=== PATIENT | male | born 1930 | race Caucasian/White ===

== ENCOUNTER 2017-09-16 08:47 | Day surgery (SDC) | payer MEDICARE, BC ==
[~2017-09-16 08:47] MED LIST: Cataract Ophth Solution EYERT ONE; Lidocaine 4% 5 ML Amp EYERT ONE; Moxifloxacin 0.5% Ophth Soln 3 ML Bottle EYERT ONE; Sodium Chloride 0.9% 10 ML Syringe FLUSH PRN
[2017-09-16] MEDS ORDERED: Sodium Chloride 0.9% 10 ML Syringe IV ONE (08:48)
[2017-09-16] MEDS ORDERED: Midazolam 1 MG/ML 2 ML SDV IV ONE (08:48)
[2017-09-16] MEDS ORDERED: EPINEPHrine 1 MG/ML SDV ONE (12:06)
[2017-09-16] MEDS ORDERED: Balanced Salt Solution Ophth Irrig 500 ML Bottle IOCULAR ONE (12:07)
[2017-09-16] MEDS ORDERED: Lidocaine 1% 10 ML MDV ONE (12:08)
[2017-09-16] MEDS ORDERED: Lidocaine 4% 5 ML Amp ONE (12:09)
[2017-09-16] MEDS ORDERED: prednisoLONE Acetate 1% Ophth Susp 5 ML Bottle ONE (12:10)
[2017-09-16] MEDS ORDERED: Moxifloxacin 0.5% Ophth Soln 3 ML Bottle ONE (12:10)
[2017-09-16] MEDS ORDERED: Povidone-Iodine 5% Sterile Ophth Soln 30 ML Bottle ONE (12:11)
--- NOTE | 2017-09-16 12:16 | PCM.OPNOTE ---
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 The patient was given topical Lidocaine 4% drops in the right eye. The patient was then prepped and draped in the sterile [facility] fashion. A wire lid speculum was placed in the right eye. A clear cornea temporal approach was used. A [address] blade was used to make a paracentesis site around 11:00. Preservative-free Lidocaine 1% was injected intracamerally. Viscoelastic was placed in the anterior chamber. A 2.5 mm keratome blade was used to make a clear corneal incision around 9:00. A cystotome needle and Utrata forceps were used to perform continuous curvilinear capsulorhexis. Balanced Salt Solution was used to perform hydrodissection and hydrodelineation. The lens nucleus was removed using the divide and conquer phacoemulsification technique. Cumulative dissipated energy was 11.69. Remaining cortex was removed using irrigation- aspiration. Viscoelastic was placed in the capsular bag. PCBOO 24.0 diopter lens was then placed in the capsular bag. Remaining viscoelastic was removed using irrigation-aspiration. The lens was well centered in the capsular bag. The paracentesis and corneal incision were found to be water-tight. The patient was given topical Prednisolone and Vigamox drops. The speculum was removed and a shield was placed over the right eye. The patient was taken to recovery in stable condition. I certify that I was present for and performed the entire operative procedure. Manuel Gauthier M.D.
[2017-09-16 13:46] VITALS: BP 123/48
== END 2017-09-16 13:32 | disposition home or self-care (01) ==
LOC: DL.SDS 08:47
PROVIDERS: ATTEND Ophthalmology
DX: H25.811 Combined forms of age-related cataract, right eye (principal); I25.10 Atherosclerotic heart disease of native coronary artery without angina pectoris; G89.29 Other chronic pain; M54.9 Dorsalgia, unspecified; I50.9 Heart failure, unspecified; K21.9 Gastro-esophageal reflux disease without esophagitis; E78.5 Hyperlipidemia, unspecified; I10 Essential (primary) hypertension; E03.9 Hypothyroidism, unspecified; Z88.1 Allergy status to other antibiotic agents; Z88.8 Allergy status to other drugs, medicaments and biological substances; Z87.891 Personal history of nicotine dependence
CPT/HCPCS: 66984; A9270; J0171; J2250; J7050; V2632; 00142

== ENCOUNTER 2017-10-21 07:49 | Day surgery (SDC) | payer MEDICARE, BC ==
[2017-10-21] MEDS ORDERED: Midazolam 1 MG/ML 2 ML SDV IV ONE (07:50)
[2017-10-21] MEDS ORDERED: Sodium Chloride 0.9% 10 ML Syringe IV ONE (07:50)
[2017-10-21] MEDS ORDERED: Moxifloxacin 0.5% Ophth Soln 3 ML Bottle EYELF ONE ×2 (09:00→09:40)
[2017-10-21] MEDS ORDERED: Sodium Chloride 0.9% 10 ML Syringe FLUSH PRN (09:00)
[2017-10-21] MEDS ORDERED: Lidocaine 4% 5 ML Amp EYELF ONE ×2 (09:00→09:40)
[2017-10-21] MEDS ORDERED: Cataract Ophth Solution EYELF ONE (09:00)
[2017-10-21] MEDS ORDERED: Povidone-Iodine 5% Sterile Ophth Soln 30 ML Bottle EYELF ONE (09:32)
[2017-10-21] MEDS ORDERED: Lidocaine 1% 30 ML SDV ONE (09:32)
[2017-10-21] MEDS ORDERED: EPINEPHrine 1 MG/ML SDV ONE (09:32)
[2017-10-21] MEDS ORDERED: prednisoLONE Acetate 1% Ophth Susp 5 ML Bottle EYELF ONE (09:40)
[2017-10-21] MEDS ORDERED: Balanced Salt Solution Ophth Irrig 500 ML Bottle IOCULAR ONE (09:40)
--- NOTE | 2017-10-21 10:12 | PCM.OPNOTE ---
- General Post-Op/Procedure Note Date of Surgery/Procedure: 10/21/17 Operative Procedure(s): Cataract extraction with intraocular lens implant left eye Findings: As above Post-Op Diagnosis: Same Anesthesia Technique: MAC Primary Surgeon: Manuel Gauthier Pathology: None EBL in mLs: 0 Complications: None Condition: Good Free Text/Narrative:: PROCEDURE: After the risks and benefits of the procedure were explained informed consent was obtained from the patient and the patient was taken to the operating room. The patient was given topical Lidocaine 4% drops in the left eye. The patient was then prepped and draped in the sterile [facility] fashion. A wire lid speculum was placed in the left eye. A clear cornea temporal approach was used. A [address] blade was used to make a paracentesis site around 5:00. Preservative-free Lidocaine 1% was injected intracamerally. Viscoelastic was placed in the anterior chamber. A 2.5 mm keratome blade was used to make a clear corneal incision around 3:00. A cystotome needle and Utrata forceps were used to perform continuous curvilinear capsulorhexis. Balanced Salt Solution was used to perform hydrodissection and hydrodelineation. The lens nucleus was removed using the divide and conquer phacoemulsification technique. Cumulative dissipated energy was 9.25. Remaining cortex was removed using irrigation- aspiration. Viscoelastic was placed in the capsular bag. PCBOO 24.0 diopter lens was then placed in the capsular bag. Remaining viscoelastic was removed using irrigation-aspiration. The lens was well centered in the capsular bag. The paracentesis and corneal incision were found to be water-tight. The patient was given topical Prednisolone and Vigamox drops. The speculum was removed and a shield was placed over the left eye. The patient was taken to recovery in stable condition. I certify that I was present for and performed the entire operative procedure. Manuel Gauthier M.D.
[2017-10-21] MEDS ORDERED: Acetaminophen 325 MG Tab PO ONE (10:52)
[2017-10-21 13:07] VITALS: BP 122/41
== END 2017-10-21 11:20 | disposition home or self-care (01) ==
LOC: DL.SDS 07:49
PROVIDERS: ATTEND Ophthalmology
DX: H25.12 Age-related nuclear cataract, left eye (principal); I11.0 Hypertensive heart disease with heart failure; I50.9 Heart failure, unspecified; I25.10 Atherosclerotic heart disease of native coronary artery without angina pectoris; K21.9 Gastro-esophageal reflux disease without esophagitis; E03.9 Hypothyroidism, unspecified; Z87.891 Personal history of nicotine dependence; Z79.82 Long term (current) use of aspirin; Z79.899 Other long term (current) drug therapy; Z88.1 Allergy status to other antibiotic agents; Z88.0 Allergy status to penicillin; Z88.8 Allergy status to other drugs, medicaments and biological substances
CPT/HCPCS: 00142; 66984; A9270; J0171; J2250; J7050; V2632

== ENCOUNTER 2018-10-28 19:03 | Emergency (ER) | payer MEDICARE, BC ==
--- NOTE | 2018-10-28 19:38 | EDM.PDOC ---
ED HPI GENERAL MEDICAL PROBLEM - General Chief Complaint: Syncope Stated Complaint: AMBULANCE Time Seen by Provider: 10/28/18 19:15 Source of Information: Reports: Patient, Family, RN History Limitations: Reports: No Limitations - History of Present Illness INITIAL COMMENTS - FREE TEXT/NARRATIVE: ED via [facility], called by family. Patient reported to be sitting in lawn with family. appeared to be sleeping but when woke by daughter responses seemed slow and was unable to walk. Seems improved now. patient states he woke this am not feeling well unable to describe specific symptoms. Poor appetite at lunch, has not eaten supper. No chest pain, may lightheaded during day. No fever, no abdominal pain, no vomiting. No cough. 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 none since. Is not on aspirin, was taken off " due to risk of seizures". - Related Data Allergies Allergy/AdvReac Type Severity Reaction Status Date / Time amoxicillin [Amoxicillin] Allergy Cannot Verified 10/21/17 08:37 Remember amoxicillin trihydrate Allergy Cannot Verified 10/21/17 08:37 [From Augmentin] Remember diltiazem HCl [From Cardizem] Allergy Cannot Verified 10/21/17 08:37 Remember potassium clavulanate Allergy Cannot Verified 10/21/17 08:37 [From Augmentin] Remember risedronate sodium Allergy Cannot Verified 10/21/17 08:37 [From Actonel] Remember Home Meds: Home Meds Aspirin [Low Dose Aspirin EC] 81 mg PO DAILY 03/29/14 [History] Isosorbide Mononitrate [Isosorbide Mononitrate ER] 60 mg PO DAILY 03/29/14 [ History] Levothyroxine [Synthroid] 88 mcg PO DAILY 03/29/14 [History] Metoprolol Tartrate 25 mg PO BID 03/29/14 [History] Ranitidine [Zantac] 150 mg PO BID 03/29/14 [History] Sennosides/Docusate Sodium [Senna-Docusate Sodium] 1 tab PO QID 03/29/14 [ History] Simvastatin [Zocor] 40 mg PO BEDTIME 03/29/14 [History] risperiDONE [Risperdal] 0.5 mg PO BEDTIME 03/29/14 [History] Acetaminophen [Acetaminophen Extra Strength] 1,000 mg PO BID PRN 07/01/14 [ History] Nitroglycerin 0.4 mg SL .Q5MIN PRN 07/01/14 [History] Morphine [Morphine 20 MG/5 ML] 2 mg IV .INTRATHECAL 09/15/17 [History] Tolterodine Tartrate 2 mg PO BID 09/15/17 [History] cloNIDine [Catapres] 0.2 mg PO BID 09/15/17 [History] Lisinopril [Prinivil] 20 mg PO BID 09/16/17 [History] Albuterol Sulfate [Proair Hfa] 1 - 2 puff INH ASDIRECTED PRN 10/20/17 [History] Ketorolac [Acular 0.5% Ophth Soln] 1 drop EYELF ASDIRECTED 10/20/17 [History] Ofloxacin 1 drop EYELF ASDIRECTED 10/20/17 [History] prednisoLONE Acetate [Prednisolone Acetate] 1 drop EYELF ASDIRECTED 10/20/17 [ History] Past Medical History HEENT History: Reports: Cataract, Hard of Hearing Cardiovascular History: Reports: CAD, Heart Failure, High Cholesterol, Hypertension Respiratory History: Reports: SOB Gastrointestinal History: Reports: GERD, Other (See Below) Other Gastrointestinal History: ESOPHAGEAL REFLUX Genitourinary History: Reports: None Musculoskeletal History: Reports: Arthritis, Back Pain, Chronic, Osteoarthritis Neurological History: Reports: None Psychiatric History: Reports: None Endocrine/Metabolic History: Reports: Hypothyroidism Hematologic History: Reports: Other (See Below) Other Hematologic History: THROMBOCYTOPENIA Immunologic History: Reports: None Oncologic (Cancer) History: Reports: None Dermatologic History: Reports: Other (See Below) Other Dermatologic History: 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 - Infectious Disease History Infectious Disease History: Reports: Chicken Pox, Measles, Mumps, Pertussis ( Whooping Cough) - Past Surgical History Head Surgeries/Procedures: Reports: None HEENT Surgical History: Reports: Cataract Surgery Cardiovascular Surgical History: Reports: Coronary Artery Stent Respiratory Surgical History: Reports: None GI Surgical History: Reports: Appendectomy Neurological Surgical History: Reports: None Musculoskeletal Surgical History: Reports: None Dermatological Surgical History: Reports: None Social & Family History - Family History Family Medical History: Noncontributory - Caffeine Use Caffeine Use: Reports: None ED ROS GENERAL - Review of Systems Review Of Systems: ROS reveals no pertinent complaints other than HPI. Constitutional: Reports: Weakness, Decreased Appetite HEENT: Reports: Hearing Loss Respiratory: Reports: No Symptoms Cardiovascular: Reports: No Symptoms GI/Abdominal: Reports: No Symptoms : Reports: No Symptoms Musculoskeletal: Reports: Back Pain (chronic no change) Skin: Reports: Other (red warm) Neurological: Reports: No Symptoms Psychiatric: Reports: No Symptoms ED EXAM, NEURO - Physical Exam Exam: See Below Exam Limited By: No Limitations General Appearance: Alert, No Apparent Distress Eye Exam: Bilateral Eye: EOMI, PERRL Ears: Normal External Exam, Hearing Loss Nose: Normal Inspection Throat/Mouth: Normal Inspection, Normal Oropharynx, Normal Voice Head Exam: Atraumatic, Normocephalic Neck: Normal Inspection Respiratory/Chest: No Respiratory Distress, Lungs Clear, Normal Breath Sounds. No: Crackles, Rales, Rhonchi, Wheezing, Stridor Cardiovascular: Normal Peripheral Pulses, Regular Rate, Rhythm. No: No Edema (1 +) GI/Abdominal: Normal Bowel Sounds, Soft. No: Distended, Guarding Neurological: Alert, CN II-XII Intact, No Motor/Sensory Deficits, Other ( Oriented person place, unsure time but able to identify as late afternoon, since not eaten supper. equal strength ilateral upper and lower no weakness noted . Speech clear. ). No: Abnormal Sensation, Tremor Back Exam: Normal Inspection, Full Range of Motion Extremities: Normal Inspection, Normal Range of Motion Psychiatric: Flat Affect Skin Exam: Warm, Dry, Intact, Normal Color, Other (skin warm and face flushed on arrival) Course - Vital Signs Last Recorded V/S: Last Vital Signs Temp 100.1 F 10/28/18 19:47 Pulse 91 10/28/18 19:47 Resp 14 10/28/18 19:47 BP 161/84 H 10/28/18 19:47 Pulse Ox 95 10/28/18 19:47 - Orders/Labs/Meds Orders: Active Orders 24 hr Category Date Time Status EKG Documentation Completion [RC] URGENT Care 10/28/18 19:14 Active Glucose [Blood Glucose Check, Bedside] [RC] ONETIME Care 10/28/18 19:21 Active Labs: Laboratory Tests 10/28/18 10/28/18 10/28/18 Range/Units 19:54 19:54 19:54 WBC 8.3 (5.0-10.0) 10^3/uL RBC 3.79 L (4.6-6.2) 10^6/uL Hgb 12.3 L (14.0-18.0) g/dL Hct 36.1 L (40.0-54.0) % MCV 95.3 D (80-100) fL MCH 32.5 (27.0-34.0) pg MCHC 34.1 (33.0-35.0) g/dL Plt Count 70 L D (150-450) 10^3/uL Neut % (Auto) 87.1 H (42.2-75.2) % Lymph % (Auto) 5.3 L (20.5-50.1) % Colbert % (Auto) 6.8 (2-8) % Eos % (Auto) 0.7 L (1.0-3.0) % Baso % (Auto) 0.1 (0.0-1.0) % PT (9.0-12.0) SEC INR (0.9-1.2) Sodium 137 (135-145) mmol/L Potassium 4.2 (3.6-5.0) mmol/L Chloride 103 (101-111) mmol/L Carbon Dioxide 26.0 (21.0-31.0) mmol/L Anion Gap 12.2 BUN 17 (7-18) mg/dL Creatinine 1.4 H (0.6-1.3) mg/dL Est Cr Clr Drug Dosing 38.10 mL/min Estimated GFR (MDRD) 48 BUN/Creatinine Ratio 12.14 Glucose 195 H (74-105) mg/dL POC Glucose (83-110) mg/dl Lactic Acid (0.5-2.2) mmol/L Calcium 8.4 (8.4-10.2) mg/dl Magnesium 1.5 L (1.8-2.5) mg/dL Total Bilirubin 0.9 (0.2-1.0) mg/dL AST 43 H (10-42) IU/L ALT 22 (10-60) IU/L Alkaline Phosphatase 83 (42-121) IU/L CK-MB (CK-2) 2.30 (0.4-4.7) ng/mL Troponin I 0.03 H* (0.00-0.02) ng/ml Total Protein 7.0 (6.7-8.2) g/dl Albumin 3.4 (3.2-5.5) g/dl Globulin 3.6 Albumin/Globulin Ratio 0.94 TSH, Ultra Sensitive 1.31 (0.45-5.33) uIu/mL Urine Color (YELLOW) Urine Appearance (CLEAR) Urine pH (5.0-9.0) Ur Specific [place] (1.005-1.030) Urine Protein (NEGATIVE) Urine Glucose (UA) (NEGATIVE) Urine Ketones (NEGATIVE) Urine Occult Blood (NEGATIVE) Urine Nitrite (NEGATIVE) Urine Bilirubin (NEGATIVE) Urine Urobilinogen (0.2-1.0) mg/dL Ur Leukocyte Esterase (NEGATIVE) Urine RBC /HPF Urine WBC (0-5/HPF) /HPF Ur Epithelial Cells (NOT SEEN) /HPF Urine Bacteria (0-FEW/HPF) /HPF 10/28/18 10/28/18 10/28/18 Range/Units 19:54 19:54 19:59 WBC (5.0-10.0) 10^3/uL RBC (4.6-6.2) 10^6/uL Hgb (14.0-18.0) g/dL Hct (40.0-54.0) % MCV (80-100) fL MCH (27.0-34.0) pg MCHC (33.0-35.0) g/dL Plt Count (150-450) 10^3/uL Neut % (Auto) (42.2-75.2) % Lymph % (Auto) (20.5-50.1) % Colbert % (Auto) (2-8) % Eos % (Auto) (1.0-3.0) % Baso % (Auto) (0.0-1.0) % PT 10.8 (9.0-12.0) SEC INR 1.1 (0.9-1.2) Sodium (135-145) mmol/L Potassium (3.6-5.0) mmol/L Chloride (101-111) mmol/L Carbon Dioxide (21.0-31.0) mmol/L Anion Gap BUN (7-18) mg/dL Creatinine (0.6-1.3) mg/dL Est Cr Clr Drug Dosing mL/min Estimated GFR (MDRD) BUN/Creatinine Ratio Glucose (74-105) mg/dL POC Glucose 192 H (83-110) mg/dl Lactic Acid 1.9 (0.5-2.2) mmol/L Calcium (8.4-10.2) mg/dl Magnesium (1.8-2.5) mg/dL Total Bilirubin (0.2-1.0) mg/dL AST (10-42) IU/L ALT (10-60) IU/L Alkaline Phosphatase (42-121) IU/L CK-MB (CK-2) (0.4-4.7) ng/mL Troponin I (0.00-0.02) ng/ml Total Protein (6.7-8.2) g/dl Albumin (3.2-5.5) g/dl Globulin Albumin/Globulin Ratio TSH, Ultra Sensitive (0.45-5.33) uIu/mL Urine Color (YELLOW) Urine Appearance (CLEAR) Urine pH (5.0-9.0) Ur Specific [place] (1.005-1.030) Urine Protein (NEGATIVE) Urine Glucose (UA) (NEGATIVE) Urine Ketones (NEGATIVE) Urine Occult Blood (NEGATIVE) Urine Nitrite (NEGATIVE) Urine Bilirubin (NEGATIVE) Urine Urobilinogen (0.2-1.0) mg/dL Ur Leukocyte Esterase (NEGATIVE) Urine RBC /HPF Urine WBC (0-5/HPF) /HPF Ur Epithelial Cells (NOT SEEN) /HPF Urine Bacteria (0-FEW/HPF) /HPF 10/28/18 Range/Units 21:33 WBC (5.0-10.0) 10^3/uL RBC (4.6-6.2) 10^6/uL Hgb (14.0-18.0) g/dL Hct (40.0-54.0) % MCV (80-100) fL MCH (27.0-34.0) pg MCHC (33.0-35.0) g/dL Plt Count (150-450) 10^3/uL Neut % (Auto) (42.2-75.2) % Lymph % (Auto) (20.5-50.1) % Colbert % (Auto) (2-8) % Eos % (Auto) (1.0-3.0) % Baso % (Auto) (0.0-1.0) % PT (9.0-12.0) SEC INR (0.9-1.2) Sodium (135-145) mmol/L Potassium (3.6-5.0) mmol/L Chloride (101-111) mmol/L Carbon Dioxide (21.0-31.0) mmol/L Anion Gap BUN (7-18) mg/dL Creatinine (0.6-1.3) mg/dL Est Cr Clr Drug Dosing mL/min Estimated GFR (MDRD) BUN/Creatinine Ratio Glucose (74-105) mg/dL POC Glucose (83-110) mg/dl Lactic Acid (0.5-2.2) mmol/L Calcium (8.4-10.2) mg/dl Magnesium (1.8-2.5) mg/dL Total Bilirubin (0.2-1.0) mg/dL AST (10-42) IU/L ALT (10-60) IU/L Alkaline Phosphatase (42-121) IU/L CK-MB (CK-2) (0.4-4.7) ng/mL Troponin I (0.00-0.02) ng/ml Total Protein (6.7-8.2) g/dl Albumin (3.2-5.5) g/dl Globulin Albumin/Globulin Ratio TSH, Ultra Sensitive (0.45-5.33) uIu/mL Urine Color Yellow (YELLOW) Urine Appearance Slightly cloudy (CLEAR) Urine pH 7.0 (5.0-9.0) Ur Specific [place] 1.015 (1.005-1.030) Urine Protein 30 H (NEGATIVE) Urine Glucose (UA) Negative (NEGATIVE) Urine Ketones Negative (NEGATIVE) Urine Occult Blood Trace-intact H (NEGATIVE) Urine Nitrite Negative (NEGATIVE) Urine Bilirubin Negative (NEGATIVE) Urine Urobilinogen 0.2 (0.2-1.0) mg/dL Ur Leukocyte Esterase Negative (NEGATIVE) Urine RBC 0-5 /HPF Urine WBC 0-5 (0-5/HPF) /HPF Ur Epithelial Cells Rare (NOT SEEN) /HPF Urine Bacteria Not seen (0-FEW/HPF) /HPF Departure - Departure Time of Disposition: 22:17 Disposition: Home, Self-Care 01 Condition: Good Clinical Impression: Syncope, near, Heat exhaustion - Discharge Information *PRESCRIPTION DRUG MONITORING PROGRAM REVIEWED*: No *COPY OF PRESCRIPTION DRUG MONITORING REPORT IN PATIENT CONNOR: No Instructions: Near-Syncope, [id number], Dehydration, Adult, [id number] Referrals: PCP,None [Primary Care Provider] - Forms: ED Department Discharge Additional Instructions: light activity up with assist tonight fluids home medications clinic follow up with week - My Orders Last 24 Hours: My Active Orders 10/28/18 19:14 EKG Documentation Completion [RC] URGENT 10/28/18 19:21 Glucose [Blood Glucose Check, Bedside] [RC] ONETIME - Assessment/Plan Last 24 Hours: My Active Orders 10/28/18 19:14 EKG Documentation Completion [RC] URGENT 10/28/18 19:21 Glucose [Blood Glucose Check, Bedside] [RC] ONETIME
[2018-10-28 19:51] VITALS: BP 161/84
[2018-10-28 21:05] LABS: ANION GAP 12.2
== END 2018-10-28 22:28 | disposition home or self-care (01) ==
LOC: DL.ED 19:03
DX: T67.5XXA Heat exhaustion, unspecified, initial encounter (principal); R55 Syncope and collapse; I11.0 Hypertensive heart disease with heart failure; I50.9 Heart failure, unspecified; E78.00 Pure hypercholesterolemia, unspecified; K21.9 Gastro-esophageal reflux disease without esophagitis; Z79.899 Other long term (current) drug therapy; Z79.82 Long term (current) use of aspirin
CPT/HCPCS: 36415; 70450; 80053; 81001; 82553; 82962; 83605; 83735; 84443; 84484; 85025; 85610; 93005; 99285-25

== ENCOUNTER 2019-01-25 06:52 | Emergency (ER) | payer MEDICARE, BC ==
--- NOTE | 2019-01-25 07:10 | EDM.PDOC ---
"ED HPI GENERAL MEDICAL PROBLEM - General Chief Complaint: Trauma Stated Complaint: AMBULANCE Time Seen by Provider: 01/25/19 07:00 Source of Information: Reports: Patient, EMS, Family (daughter), Old Records, RN , RN Notes Reviewed History Limitations: Reports: No Limitations - History of Present Illness INITIAL COMMENTS - FREE TEXT/NARRATIVE: Pt arrives to ER from assisted living by ambulance with report that he fell at 0545HRS while using his walker to go to the bathroom. Pt reports he hit his forehead, but did not have a LOC. He is on ASA. Pt also has multiple skin tears on the left upper extremity, some due to the fall and some he thinks from struggling to get up. Denies neck pain, visual changes, or any symptoms preceding the fall such as chest pain, lightheadedness, dizziness, motor weakness, or syncope. Pt reports that he has been weak and fatigued for several weeks. TRAUMA NOTES: Pre-arrival trauma alert by EMS: 0648HRS, trauma activation 0653HRS. ARRIVAL TIME: 0652HRS C-COLLAR STATUS: No C-collar applied prior to arrival or in ER, no C-collar indicated. SPINAL BOARD/IMMOBILIZATION STATUS: no spinal immobilization GCS ON ARRIVAL: 15 Onset: Today Location: Reports: Head, Upper Extremity, Left Quality: Reports: Ache Severity: Mild Improves with: Reports: None Worsens with: Reports: None Associated Symptoms: Reports: No Other Symptoms - Related Data Allergies Allergy/AdvReac Type Severity Reaction Status Date / Time amoxicillin [Amoxicillin] Allergy Cannot Verified 10/21/17 08:37 Remember amoxicillin trihydrate Allergy Cannot Verified 10/21/17 08:37 [From Augmentin] Remember diltiazem HCl [From Cardizem] Allergy Cannot Verified 10/21/17 08:37 Remember potassium clavulanate Allergy Cannot Verified 10/21/17 08:37 [From Augmentin] Remember risedronate sodium Allergy Cannot Verified 10/21/17 08:37 [From Actonel] Remember Home Meds: Home Meds Aspirin [Low Dose Aspirin EC] 81 mg PO DAILY 03/29/14 [History] Isosorbide Mononitrate [Isosorbide Mononitrate ER] 60 mg PO DAILY 03/29/14 [ History] Levothyroxine [Synthroid] 88 mcg PO DAILY 03/29/14 [History] Metoprolol Tartrate 25 mg PO BID 03/29/14 [History] Ranitidine [Zantac] 150 mg PO BID 03/29/14 [History] Sennosides/Docusate Sodium [Senna-Docusate Sodium] 1 tab PO QID 03/29/14 [ History] Simvastatin [Zocor] 40 mg PO BEDTIME 03/29/14 [History] risperiDONE [Risperdal] 0.5 mg PO BEDTIME 03/29/14 [History] Acetaminophen [Acetaminophen Extra Strength] 1,000 mg PO BID PRN 07/01/14 [ History] Nitroglycerin 0.4 mg SL .Q5MIN PRN 07/01/14 [History] Lisinopril [Prinivil] 20 mg PO BID 09/16/17 [History] Albuterol Sulfate [Proair Hfa] 1 - 2 puff INH ASDIRECTED PRN 10/20/17 [History] Ketorolac [Acular 0.5% Ophth Soln] 1 drop EYELF ASDIRECTED 10/20/17 [History] Ofloxacin 1 drop EYELF ASDIRECTED 10/20/17 [History] prednisoLONE Acetate [Prednisolone Acetate] 1 drop EYELF ASDIRECTED 10/20/17 [ History] Sertraline [Zoloft] 50 mg PO BEDTIME 01/25/19 [History] Tolterodine Tartrate 2 mg PO BID 01/25/19 [History] cloNIDine [Clonidine] 0.1 mg PO BID 01/25/19 [History] Past Medical History HEENT History: Reports: Cataract, Hard of Hearing Cardiovascular History: Reports: CAD, Heart Failure, High Cholesterol, Hypertension Respiratory History: Reports: SOB Gastrointestinal History: Reports: GERD, Other (See Below) Other Gastrointestinal History: ESOPHAGEAL REFLUX Genitourinary History: Reports: None Musculoskeletal History: Reports: Arthritis, Back Pain, Chronic, Osteoarthritis Neurological History: Reports: None Psychiatric History: Reports: None Endocrine/Metabolic History: Reports: Hypothyroidism Hematologic History: Reports: Other (See Below) Other Hematologic History: THROMBOCYTOPENIA Immunologic History: Reports: None Oncologic (Cancer) History: Reports: None Dermatologic History: Reports: Other (See Below) Other Dermatologic History: 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 - Infectious Disease History Infectious Disease History: Reports: Chicken Pox, Measles, Mumps, Pertussis ( Whooping Cough) - Past Surgical History Head Surgeries/Procedures: Reports: None HEENT Surgical History: Reports: Cataract Surgery Cardiovascular Surgical History: Reports: Coronary Artery Stent Respiratory Surgical History: Reports: None GI Surgical History: Reports: Appendectomy Neurological Surgical History: Reports: None Musculoskeletal Surgical History: Reports: None Dermatological Surgical History: Reports: None Social & Family History - Family History Family Medical History: Noncontributory - Tobacco Use Smoking Status *Q: Former Smoker - Caffeine Use Caffeine Use: Reports: None - Living Situation & Occupation Living situation: Reports: Alone, Assisted Living Occupation: Retired Review of Systems - Review of Systems Review Of Systems: ROS reveals no pertinent complaints other than HPI. ED EXAM, GENERAL - Physical Exam Exam: See Below Free Text/Narrative:: PRIMARY TRAUMA SURVEY (0700hrs) AIRWAY: Patent nasal and oral airways. BREATHING: Spontaneous respirations with clear B/L breath sounds. CIRCULATION: Heart RRR, intact distal pulses at all four extremities, no cyanosis. DEFORMITY/DISABILITY: No long bone deformities. No active bleeding. No neuro. deficits. Abdomen benign to exam. EXPOSURE: Skin warm, and dry. 1cm irregular laceration to forehead. Multiple large superficial skin tears to the left upper extremity. SECONDARY TRAUMA SURVEY FOLLOWS (0805hrs) Exam Limited By: No Limitations General Appearance: Alert, No Apparent Distress, Other (Well appearing elderly male) Eye Exam: Bilateral Eye: EOMI, Normal Inspection, PERRL Ears: Normal External Exam (Left helix s/p basal CA removal, well healed), Hearing Grossly Normal Nose: Normal Inspection, Normal Mucosa, No Blood Throat/Mouth: Normal Inspection, Normal Lips, Normal Teeth, Normal Gums, Normal Oropharynx, Normal Voice, No Airway Compromise Head: Normocephalic, Other (1cm lac. to forehead to depth of subcut. tissue, no active bleeding, no FB.) Neck: Normal Inspection, Supple, Non-Tender, Full Range of Motion, Other (No c- collar. C-spine cleared by Hx and exam.) Respiratory/Chest: No Respiratory Distress, Lungs Clear, No Accessory Muscle Use , Chest Non-Tender, Decreased Breath Sounds Cardiovascular: Normal Peripheral Pulses, Regular Rate, Rhythm, No Edema GI/Abdominal: Normal Bowel Sounds, Soft, Non-Tender, No Distention (Male) Exam: Deferred Rectal (Males) Exam: Deferred Back Exam: Normal Inspection Extremities: Normal Range of Motion, Non-Tender, Normal Capillary Refill Neurological: Alert, Oriented (to person and place), CN II-XII Intact, No Motor/ Sensory Deficits, Other (GCS 15 at 1hr. GCS 15 at time of discharge.) Psychiatric: Normal Mood Skin Exam: Warm, Dry, Wound/Incision (Large superficial skin tears to left upper arm, left forearm, and left dorsal hand) ED TRAUMA PROCEDURES - Laceration/Wound Repair Medial Forehead Lac/Wound Length In cm: 1 Appearance: Subcutaneous, Irregular Distal NVT: Neuro & Vascular Intact Anesthetic Type: Local Local Anesthesia - Lidocaine (Xylocaine): 1% Plain Local Anesthetic Volume: 3cc Skin Prep: Chlorhexidine (Hibiciens), Sterile Drape Exploration/Debridement/Repair: Wound Explored, In a Bloodless Field, Explored to Base, Minimal Debridement, Minimally Undermined Closed With: Sutures Suture Size: 4-0 # of Sutures: 3 Drain Placement: No Sterile Dressing Applied: Nurse Tetanus Status Addressed: Yes Complications: No EKG INTERPRETATION EKG Date: 01/25/19 Time: 06:54 Rhythm: Other (SR) Rate (Beats/Min): 76 [place]: Normal P-Wave: Present QRS: Normal (PAC present) ST-T: Normal QT: Normal TX/PQ Interval: 1st degree AVB Comparison: No Change EKG Interpretation Comments: No acute ischemic changes. Course - Vital Signs Last Recorded V/S: See paper trauma chart for VS: reviewed by me. - Orders/Labs/Meds Orders: Active Orders 24 hr Category Date Time Status Blood Glucose Check, Bedside [RC] ONETIME Care 01/25/19 07:16 Active EKG 12 Lead [EKG Documentation Completion] [RC] STAT Care 01/25/19 07:16 Active Peripheral IV Care [RC] . DIRECTED Care 01/25/19 07:17 Active Vaccines to be Administered [RC] PER UNIT ROUTINE Care 01/25/19 07:48 Active Sodium Chloride 0.9% [Saline Flush] Med 01/25/19 07:16 Active 10 ml FLUSH ASDIRECTED PRN Peripheral IV Insertion Adult [OM.PC] Stat Oth 01/25/19 07:16 Ordered Steri Strips Application [OM.PC] Routine Oth 01/25/19 08:57 Ordered Medication Orders Sodium Chloride (Saline Flush) 10 ml FLUSH ASDIRECTED PRN PRN Reason: Keep Vein Open Last Admin: 01/25/19 07:00 Dose: 10 ml Labs: Laboratory Tests 01/25/19 01/25/19 01/25/19 Range/Units 07:15 07:15 07:15 WBC 4.5 L (5.0-10.0) 10^3/uL RBC 3.62 L (4.6-6.2) 10^6/uL Hgb 11.3 L (14.0-18.0) g/dL Hct 34.6 L (40.0-54.0) % MCV 95.6 (80-100) fL MCH 31.2 (27.0-34.0) pg MCHC 32.7 L (33.0-35.0) g/dL Plt Count 78 L (150-450) 10^3/uL Neut % (Auto) 65.3 (42.2-75.2) % Lymph % (Auto) 20.8 (20.5-50.1) % [place] % (Auto) 10.4 H (2-8) % Eos % (Auto) 3.3 H (1.0-3.0) % Baso % (Auto) 0.2 (0.0-1.0) % PT 10.8 (9.0-12.0) SEC INR 1.1 (0.9-1.2) APTT 25.5 (22.0-34.0) SEC Sodium (135-145) mmol/L Potassium (3.6-5.0) mmol/L Chloride (101-111) mmol/L Carbon Dioxide (21.0-31.0) mmol/L Anion Gap BUN (7-18) mg/dL Creatinine (0.6-1.3) mg/dL Est Cr Clr Drug Dosing Estimated GFR (MDRD) BUN/Creatinine Ratio Glucose (74-105) mg/dL Calcium (8.4-10.2) mg/dl Total Bilirubin (0.2-1.0) mg/dL AST (10-42) IU/L ALT (10-60) IU/L Alkaline Phosphatase (42-121) IU/L Troponin I (0.00-0.02) ng/ml B-Natriuretic Peptide (0-100) pg/ml Total Protein (6.7-8.2) g/dl Albumin (3.2-5.5) g/dl Globulin Albumin/Globulin Ratio Amylase (28-100) U/L Lipase (22-51) U/L Urine Color (YELLOW) Urine Appearance (CLEAR) Urine pH (5.0-9.0) Ur Specific [place] (1.005-1.030) Urine Protein (NEGATIVE) Urine Glucose (UA) (NEGATIVE) Urine Ketones (NEGATIVE) Urine Occult Blood (NEGATIVE) Urine Nitrite (NEGATIVE) Urine Bilirubin (NEGATIVE) Urine Urobilinogen (0.2-1.0) mg/dL Ur Leukocyte Esterase (NEGATIVE) Urine RBC /HPF Urine WBC (0-5/HPF) /HPF Ur Epithelial Cells (NOT SEEN) /HPF Urine Bacteria (0-FEW/HPF) /HPF Urine Mucus (NOT SEEN) /LPF Urine Opiates Screen Negative (NEGATIVE) Ur Oxycodone Screen Negative (NEGATIVE) Urine Methadone Screen Negative (NEGATIVE) Ur Barbiturates Screen Negative (NEGATIVE) U Tricyclic Antidepress Negative (NEGATIVE) Ur Phencyclidine Scrn Negative (NEGATIVE) Ur Amphetamine Screen Negative (NEGATIVE) U Methamphetamines Scrn Negative (NEGATIVE) Urine MDMA Screen Negative (NEGATIVE) U Benzodiazepines Scrn Negative (NEGATIVE) Urine Cocaine Screen Negative (NEGATIVE) U Marijuana (THC) Screen Negative (NEGATIVE) Ethyl Alcohol mg/dL 01/25/19 01/25/19 Range/Units 07:15 07:15 WBC (5.0-10.0) 10^3/uL RBC (4.6-6.2) 10^6/uL Hgb (14.0-18.0) g/dL Hct (40.0-54.0) % MCV (80-100) fL MCH (27.0-34.0) pg MCHC (33.0-35.0) g/dL Plt Count (150-450) 10^3/uL Neut % (Auto) (42.2-75.2) % Lymph % (Auto) (20.5-50.1) % [place] % (Auto) (2-8) % Eos % (Auto) (1.0-3.0) % Baso % (Auto) (0.0-1.0) % PT (9.0-12.0) SEC INR (0.9-1.2) APTT (22.0-34.0) SEC Sodium 140 (135-145) mmol/L Potassium 4.1 (3.6-5.0) mmol/L Chloride 100 L (101-111) mmol/L Carbon Dioxide 33.0 H (21.0-31.0) mmol/L Anion Gap 11.1 BUN 16 (7-18) mg/dL Creatinine 1.3 (0.6-1.3) mg/dL Est Cr Clr Drug Dosing TNP Estimated GFR (MDRD) 52 BUN/Creatinine Ratio 12.30 Glucose 121 H (74-105) mg/dL Calcium 8.7 (8.4-10.2) mg/dl Total Bilirubin 0.7 (0.2-1.0) mg/dL AST 31 (10-42) IU/L ALT 13 (10-60) IU/L Alkaline Phosphatase 63 (42-121) IU/L Troponin I 0.04 H* (0.00-0.02) ng/ml B-Natriuretic Peptide 238 H (0-100) pg/ml Total Protein 7.0 (6.7-8.2) g/dl Albumin 3.4 (3.2-5.5) g/dl Globulin 3.6 Albumin/Globulin Ratio 0.94 Amylase 46 (28-100) U/L Lipase 26 (22-51) U/L Urine Color Yellow (YELLOW) Urine Appearance Clear (CLEAR) Urine pH 7.0 (5.0-9.0) Ur Specific [place] 1.020 (1.005-1.030) Urine Protein 100 H (NEGATIVE) Urine Glucose (UA) Negative (NEGATIVE) Urine Ketones Negative (NEGATIVE) Urine Occult Blood Trace-intact H (NEGATIVE) Urine Nitrite Negative (NEGATIVE) Urine Bilirubin Negative (NEGATIVE) Urine Urobilinogen 0.2 (0.2-1.0) mg/dL Ur Leukocyte Esterase Negative (NEGATIVE) Urine RBC 0-5 /HPF Urine WBC Not seen (0-5/HPF) /HPF Ur Epithelial Cells Rare (NOT SEEN) /HPF Urine Bacteria Not seen (0-FEW/HPF) /HPF Urine Mucus Not seen (NOT SEEN) /LPF Urine Opiates Screen (NEGATIVE) Ur Oxycodone Screen (NEGATIVE) Urine Methadone Screen (NEGATIVE) Ur Barbiturates Screen (NEGATIVE) U Tricyclic Antidepress (NEGATIVE) Ur Phencyclidine Scrn (NEGATIVE) Ur Amphetamine Screen (NEGATIVE) U Methamphetamines Scrn (NEGATIVE) Urine MDMA Screen (NEGATIVE) U Benzodiazepines Scrn (NEGATIVE) Urine Cocaine Screen (NEGATIVE) U Marijuana (THC) Screen (NEGATIVE) Ethyl Alcohol < 5 mg/dL Meds: Medications Generic Name Dose Route Start Last Admin Trade Name Freq PRN Reason Stop Dose Admin Sodium Chloride 10 ml 01/25/19 07:16 01/25/19 07:00 Saline Flush FLUSH 10 ml ASDIRECTED PRN Administration Keep Vein Open Discontinued Medications Generic Name Dose Route Start Last Admin Trade Name Freq PRN Reason Stop Dose Admin Bacitracin 1 dose 01/25/19 08:23 01/25/19 08:31 Bacitracin Oint 1 Gm TOP 01/25/19 08:24 1 dose ONETIME ONE Administration Diphtheria/Tetanus/Acell Pertussis 0.5 ml 01/25/19 07:48 01/25/19 08:27 Adacel IM 01/25/19 07:49 0.5 ml .ONCE ONE Administration Lidocaine HCl 30 ml 01/25/19 08:23 01/25/19 08:31 Xylocaine-Mpf 1% INJECT 01/25/19 08:24 30 ml ONETIME ONE Administration - Radiology Interpretation Free Text/Narrative:: [facility] Final Radiology Report Call: [phone] assistance Online chat: [email or web address] Name: DAVID BEST Age: 88Years M Date: 01/25/2019 SSN: -- : [id number] Study: XR PELVIS 1 OR 2 VIEWS Requesting Physician: GREGG SMITH Images: 1 Addl Studies: Provided Clinical History: fall, pain in pelvic region Contrast: Contrast Medium: Contrast Amount: Contrast Method: CONFIDENTIALITY STATEMENT This report is intended only for use by the referring physician, and only in accordance with law. If you received this in error, call [phone]. Page 1 of 1 EXAM: XR Pelvis EXAM DATE/TIME: 01/25/2019 7:48 AM CLINICAL HISTORY: 88 years old, male; Injury or trauma; Fall; Initial encounter; Abrasion; Does not apply; Pelvic region; Injury date: 01/25/2019; Additional info: Fall, pain in pelvic region TECHNIQUE: Imaging protocol: XR pelvis. Views: 1 or 2 view. COMPARISON: No relevant prior studies available. FINDINGS: Bones/joints: Unremarkable. No acute fracture. Soft tissues: Unremarkable. Vasculature: Vascular calcifications are present. IMPRESSION: No acute abnormality involving the pelvis. Thank you for allowing us to participate in the care of your patient. Dictated and Authenticated by: Nirmala Martinez MD [facility] Final Radiology Report Call: [phone] assistance Online chat: [email or web address] Name: DAVID BEST Age: 88Years M Date: 01/25/2019 SSN: -- : [id number] Study: XR CHEST 1 VIEW FRONTAL Requesting Physician: GREGG SMITH Images: 1 Addl Studies: Provided Clinical History: fall, shortness of breath, dizziness Contrast: Contrast Medium: Contrast Amount: Contrast Method: Page 1 of 2 EXAM: XR Chest, 1 View EXAM DATE/TIME: 01/25/2019 7:45 AM CLINICAL HISTORY: 88 years old, male; Shortness of breath; Additional info: Fall, shortness of breath, dizziness TECHNIQUE: Imaging protocol: XR of the chest Views: 1 view. COMPARISON: CR Chest 2V 07/11/2014 10:13 AM FINDINGS: Lungs: See Soft Tissues Finding. Pleural space: Unremarkable. No pleural effusion. No pneumothorax. Heart/Mediastinum: Unremarkable. No cardiomegaly. Bones/joints: Mild degenerative changes of the shoulder joints. Soft tissues: Increased lung markings that appear to be possibly due to overlying soft tissues although mild edema have a similar appearance. No focal infiltrates are identified. IMPRESSION: Increased lung markings that appear to be possibly due to overlying soft tissues although mild edema have a similar appearance. No focal infiltrates are identified. Thank you for allowing us to participate in the care of your patient. DAVID BEST | Final Radiology Report CONFIDENTIALITY STATEMENT This report is intended only for use by the referring physician, and only in accordance with law. If you received this in error, call [phone]. Page 2 of 2 Dictated and Authenticated by: Nirmala Martinez MD 01/25/2019 8:07 AM Central Time ([place] & [place]) [facility] Final Radiology Report Call: [phone] assistance Online chat: [email or web address] Name: DAVID BEST Age: 88Years M Date: 01/25/2019 SSN: -- : [id number] Study: CT HEAD WO Requesting Physician: GREGG SMITH Images: 152 Addl Studies: Provided Clinical History: fall with head injury Contrast: Without Contrast Medium: Contrast Amount: Contrast Method: Page 1 of 2 EXAM: CT Head Without Contrast EXAM DATE/TIME: 01/25/2019 7:46 AM CLINICAL HISTORY: 88 years old, male; Injury or trauma; Fall; Initial encounter; Abrasion; Forehead; Injury date: 01/25/2019; Additional info: Fall with head injury TECHNIQUE: Imaging protocol: Computed tomography of the head without contrast. Radiation optimization: All CT scans at this facility use at least one of these dose optimization techniques: automated exposure control; mA and/or kV adjustment per patient size (includes targeted exams where dose is matched to clinical indication); or iterative reconstruction. COMPARISON: CT Head wo Cont 10/28/2018 7:46 PM FINDINGS: Brain: Prominent sulci. Patchy hypodensity of the cerebral white matter which are nonspecific but likely secondary to microangiopathic changes. Ventricles: The ventricles are prominent secondary to diffuse volume loss/ atrophy. Bones/joints: Unremarkable. No acute fracture. Sinuses: Visualized sinuses are unremarkable. No fluid levels. Mastoid air cells: Visualized mastoid air cells are well aerated. Soft tissues: Unremarkable. IMPRESSION: Chronic age related changes but no evidence of acute intracranial pathology. DAVID BEST | Final Radiology Report CONFIDENTIALITY STATEMENT This report is intended only for use by the referring physician, and only in accordance with law. If you received this in error, call [phone]. Page 2 of 2 Thank you for allowing us to participate in the care of your patient. Dictated and Authenticated by: Nirmala Martinez MD 01/25/2019 8:05 AM Central Time ([place] & [place]) - Re-Assessments/Exams Free Text/Narrative Re-Assessment/Exam: 01/25/19 09:07 Skin tears to left upper extremity steri-stripped and dressed by RN. Departure - Departure Time of Disposition: 09:40 Disposition: Home, Self-Care 01 Condition: Fair Clinical Impression: Skin tear of left upper extremity, Generalized weakness Laceration of forehead without complication Qualifiers: Encounter type: initial encounter Qualified Code(s): S01.81XA - Laceration without foreign body of other part of head, initial encounter Fall as cause of accidental injury at home as place of occurrence Qualifiers: Encounter type: initial encounter Qualified Code(s): W19.XXXA - Unspecified fall, initial encounter; Y92.009 - Unspecified place in unspecified non- institutional (private) residence as the place of occurrence of the external cause - Discharge Information *PRESCRIPTION DRUG MONITORING PROGRAM REVIEWED*: No *COPY OF PRESCRIPTION DRUG MONITORING REPORT IN PATIENT CONNOR: No Instructions: Laceration Care, Adult, [id number], Skin Tear Care, Easy-to- Read, Fall Prevention in the Home, Adult Referrals: Luca Hendricks MD [Primary Care Provider] - Forms: ED Department Discharge Additional Instructions: Follow up in clinic in 3 to 4 days for recheck of skin wounds. Consider advancing to a skilled care setting due to generalized weakness and frequent falls. - My Orders Last 24 Hours: My Active Orders 01/25/19 07:16 Blood Glucose Check, Bedside [RC] ONETIME EKG 12 Lead [EKG Documentation Completion] [RC] STAT Sodium Chloride 0.9% [Saline Flush] 10 ml FLUSH ASDIRECTED PRN Peripheral IV Insertion Adult [OM.PC] Stat 01/25/19 07:17 Peripheral IV Care [RC] . DIRECTED 01/25/19 07:48 Vaccines to be Administered [RC] PER UNIT ROUTINE 01/25/19 08:57 Steri Strips Application [OM.PC] Routine - Assessment/Plan Last 24 Hours: My Active Orders 01/25/19 07:16 Blood Glucose Check, Bedside [RC] ONETIME EKG 12 Lead [EKG Documentation Completion] [RC] STAT Sodium Chloride 0.9% [Saline Flush] 10 ml FLUSH ASDIRECTED PRN Peripheral IV Insertion Adult [OM.PC] Stat 01/25/19 07:17 Peripheral IV Care [RC] . DIRECTED 01/25/19 07:48 Vaccines to be Administered [RC] PER UNIT ROUTINE 01/25/19 08:57 Steri Strips Application [OM.PC] Routine"
[2019-01-25] MEDS ORDERED: Sodium Chloride 0.9% 10 ML Syringe FLUSH PRN (07:16)
[2019-01-25 07:36] LABS: ANION GAP 11.1; CHLORIDE,CL 100 mmol/L (101-111); SODIUM,NA 140 mmol/L (135-145)
[2019-01-25] MEDS ORDERED: Diphtheria,Pertussis(Acell),Tetanus Vaccine 0.5 ML SDV IM ONE (07:48)
[2019-01-25] MEDS ORDERED: Bacitracin Oint 1 GM U/D Packet TOP ONE (08:23)
[2019-01-25] MEDS ORDERED: Lidocaine 1% 30 ML SDV INJECT ONE (08:23)
== END 2019-01-25 10:35 | disposition home or self-care (01) ==
LOC: DL.ED 06:52
DX: S01.81XA Laceration without foreign body of other part of head, initial encounter (principal); S51.812A Laceration without foreign body of left forearm, initial encounter; S61.412A Laceration without foreign body of left hand, initial encounter; R53.1 Weakness; I11.0 Hypertensive heart disease with heart failure; I50.9 Heart failure, unspecified; E78.00 Pure hypercholesterolemia, unspecified; K21.9 Gastro-esophageal reflux disease without esophagitis; E03.9 Hypothyroidism, unspecified; Z79.82 Long term (current) use of aspirin; Z88.8 Allergy status to other drugs, medicaments and biological substances; Z79.899 Other long term (current) drug therapy; Z87.891 Personal history of nicotine dependence; Z23 Encounter for immunization; W19.XXXA Unspecified fall, initial encounter; W22.8XXA Striking against or struck by other objects, initial encounter; Y92.009 Unspecified place in unspecified non-institutional (private) residence as the place of occurrence of the external cause
CPT/HCPCS: 12011; 36415; 70450; 71045; 72170; 80053; 80305; 81001; 82150; 82962; 83690; 83880; 84484; 85025; 85610; 85730; 90471; 90715; 93005; 99284; G0480; J2001; 13131

== ENCOUNTER 2019-06-02 00:04 | Emergency (ER) | payer MEDICARE, BC ==
[2019-06-02 00:12] VITALS: BP 177/61; PULSE 77
--- NOTE | 2019-06-02 00:51 | EDM.PDOC ---
ED HPI GENERAL MEDICAL PROBLEM - General Chief Complaint: Cardiovascular Problem Stated Complaint: AMBULANCE Time Seen by Provider: 06/02/19 00:15 Source of Information: Reports: Patient, EMS History Limitations: Reports: No Limitations, Language Barrier (hearing impairment) - History of Present Illness INITIAL COMMENTS - FREE TEXT/NARRATIVE: ED via [facility] with report of having fallen in bathroom, "one minute I am up next thing I'm on the floor, unsure if loss of consciousness. Unseure how long on floor. EMS note appeared to have been a while as blood dried, laceration to bottom of right foot likey from bathroom door. Staff from [facility] assisted patient back into wheelchair and called EMS. Daughter here reports patient has been falling more, "legs are just giving out on him". Took away walker today and now only has wheelchair to transfer. - Related Data Allergies Allergy/AdvReac Type Severity Reaction Status Date / Time amoxicillin [Amoxicillin] Allergy Cannot Verified 10/21/17 08:37 Remember amoxicillin trihydrate Allergy Cannot Verified 10/21/17 08:37 [From Augmentin] Remember diltiazem HCl [From Cardizem] Allergy Cannot Verified 10/21/17 08:37 Remember potassium clavulanate Allergy Cannot Verified 10/21/17 08:37 [From Augmentin] Remember risedronate sodium Allergy Cannot Verified 10/21/17 08:37 [From Actonel] Remember Home Meds: Home Meds Aspirin [Low Dose Aspirin EC] 81 mg PO DAILY 03/29/14 [History] Isosorbide Mononitrate [Isosorbide Mononitrate ER] 60 mg PO DAILY 03/29/14 [ History] Levothyroxine [Synthroid] 88 mcg PO DAILY 03/29/14 [History] Metoprolol Tartrate 25 mg PO BID 03/29/14 [History] Ranitidine [Zantac] 150 mg PO BID 03/29/14 [History] Sennosides/Docusate Sodium [Senna-Docusate Sodium] 1 tab PO QID 03/29/14 [ History] Simvastatin [Zocor] 40 mg PO BEDTIME 03/29/14 [History] risperiDONE [Risperdal] 0.5 mg PO BEDTIME 03/29/14 [History] Acetaminophen [Acetaminophen Extra Strength] 1,000 mg PO BID PRN 07/01/14 [ History] Nitroglycerin 0.4 mg SL .Q5MIN PRN 07/01/14 [History] lisinopriL [Prinivil] 20 mg PO BID 09/16/17 [History] Albuterol Sulfate [Proair Hfa] 1 - 2 puff INH ASDIRECTED PRN 10/20/17 [History] Ketorolac [Acular 0.5% Ophth Soln] 1 drop EYELF ASDIRECTED 10/20/17 [History] Ofloxacin 1 drop EYELF ASDIRECTED 10/20/17 [History] prednisoLONE Acetate [Prednisolone Acetate] 1 drop EYELF ASDIRECTED 10/20/17 [ History] Sertraline [Zoloft] 50 mg PO BEDTIME 01/25/19 [History] Tolterodine Tartrate 2 mg PO BID 01/25/19 [History] cloNIDine [Clonidine] 0.1 mg PO BID 01/25/19 [History] Past Medical History HEENT History: Reports: Cataract, Hard of Hearing Cardiovascular History: Reports: CAD, Heart Failure, High Cholesterol, Hypertension Respiratory History: Reports: SOB Gastrointestinal History: Reports: GERD, Other (See Below) Other Gastrointestinal History: ESOPHAGEAL REFLUX Genitourinary History: Reports: None Musculoskeletal History: Reports: Arthritis, Back Pain, Chronic, Osteoarthritis Neurological History: Reports: None Psychiatric History: Reports: None Endocrine/Metabolic History: Reports: Hypothyroidism Hematologic History: Reports: Other (See Below) Other Hematologic History: THROMBOCYTOPENIA Immunologic History: Reports: None Oncologic (Cancer) History: Reports: None Dermatologic History: Reports: Other (See Below) Other Dermatologic History: 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 - Infectious Disease History Infectious Disease History: Reports: Chicken Pox, Measles, Mumps, Pertussis ( Whooping Cough) - Past Surgical History Head Surgeries/Procedures: Reports: None HEENT Surgical History: Reports: Cataract Surgery Cardiovascular Surgical History: Reports: Coronary Artery Stent Respiratory Surgical History: Reports: None GI Surgical History: Reports: Appendectomy Neurological Surgical History: Reports: None Musculoskeletal Surgical History: Reports: None Dermatological Surgical History: Reports: None Social & Family History - Family History Family Medical History: Noncontributory - Tobacco Use Smoking Status *Q: Unknown Ever Smoked - Caffeine Use Caffeine Use: Reports: None - Living Situation & Occupation Living situation: Reports: Alone, Assisted Living Occupation: Retired ED ROS GENERAL - Review of Systems Review Of Systems: Comprehensive ROS is negative, except as noted in HPI. ED EXAM, GENERAL - Physical Exam Exam: See Below Exam Limited By: No Limitations General Appearance: Alert, Mild Distress Eye Exam: Bilateral Eye: EOMI Ears: Normal External Exam, Normal TMs Nose: Normal Inspection Throat/Mouth: Normal Inspection, Normal Lips, No Airway Compromise Head: Atraumatic, Normocephalic Neck: Normal Inspection Respiratory/Chest: No Respiratory Distress, Lungs Clear, Other (bruising right posterior lower ribs) Cardiovascular: Normal Peripheral Pulses, Regular Rate, Rhythm. No: No Edema GI/Abdominal: Normal Bowel Sounds, Soft. No: Distended, Guarding, Abnormal Bowel Sounds Extremities: Other (generalized lower extremity weakness. bruising left elbow, tender left mid lower leg, no deformity) Neurological: Alert, Oriented, Memory Loss Recent Events (baseline defecit), Abnormal Gait Skin Exam: Warm, Ecchymosis (right flank), Wound/Incision (.7 cm laceration to base of right 5thf toe, plantar . large superficial skin tear to right elbow. ) ED GENERAL MEDICAL PROCEDURES - Laceration/Wound Repair Right Proximal Toe - Little Lac/wound length in cm: 0.7 Appearance: Superficial Distal NVT: Neuro & Vascular Intact Local Anesthesia - Lidocaine (Xylocaine): 1% Plain Local Anesthetic Volume: 2cc Skin Prep: Chlorhexidine (Hibiciens), Saline Closed with: Sutures Suture Size: 4-0 # of Sutures: 3 Suture Type: Interrupted Course - Vital Signs Last Recorded V/S: Last Vital Signs Temp 98.8 F 06/02/19 00:11 Pulse 77 06/02/19 00:11 Resp 20 06/02/19 00:11 BP 177/61 H 06/02/19 00:11 Pulse Ox 91 L 06/02/19 00:11 - Orders/Labs/Meds Labs: Laboratory Tests 06/02/19 06/02/19 06/02/19 Range/Units 00:28 00:28 00:28 WBC 4.7 L (5.0-10.0) 10^3/uL RBC 3.12 L (4.6-6.2) 10^6/uL Hgb 9.5 L D (14.0-18.0) g/dL Hct 29.5 L (40.0-54.0) % MCV 94.6 (80-100) fL MCH 30.4 (27.0-34.0) pg MCHC 32.2 L (33.0-35.0) g/dL Plt Count 88 L (150-450) 10^3/uL Neut % (Auto) 73.7 (42.2-75.2) % Lymph % (Auto) 13.7 L (20.5-50.1) % [place] % (Auto) 10.0 H (2-8) % Eos % (Auto) 2.4 (1.0-3.0) % Baso % (Auto) 0.2 (0.0-1.0) % Sodium 139 (135-145) mmol/L Potassium 3.7 (3.6-5.0) mmol/L Chloride 98 L (101-111) mmol/L Carbon Dioxide 33.0 H (21.0-31.0) mmol/L Anion Gap 11.7 BUN 23 H (7-18) mg/dL Creatinine 1.2 (0.6-1.3) mg/dL Est Cr Clr Drug Dosing 43.77 mL/min Estimated GFR (MDRD) 57 BUN/Creatinine Ratio 19.16 Glucose 178 H (74-105) mg/dL Calcium 8.3 L (8.4-10.2) mg/dl Total Bilirubin 0.6 (0.2-1.0) mg/dL AST 27 (10-42) IU/L ALT 14 (10-60) IU/L Alkaline Phosphatase 69 (42-121) IU/L Creatine Kinase 59 (26-174) IU/L Creatine Kinase Index 2.9 H (0-2.4) % CK-MB (CK-2) 1.70 (0.4-4.7) ng/mL Troponin I 0.04 H* (0.00-0.02) ng/ml Total Protein 7.1 (6.7-8.2) g/dl Albumin 3.1 L (3.2-5.5) g/dl Globulin 4.0 Albumin/Globulin Ratio 0.78 Meds: Medications Discontinued Medications Generic Name Dose Route Start Last Admin Trade Name Freq PRN Reason Stop Dose Admin Bacitracin 1 dose 06/02/19 02:33 06/02/19 02:59 Bacitracin Oint 1 Gm TOP 06/02/19 02:34 1 dose ONETIME ONE Administration Lidocaine HCl 30 ml 06/02/19 02:33 06/02/19 02:59 Xylocaine-Mpf 1% INJECT 06/02/19 02:34 3 ml ONETIME ONE Administration - Radiology Interpretation Free Text/Narrative:: xray ct negative, see reports - Re-Assessments/Exams Free Text/Narrative Re-Assessment/Exam: 06/06/19 09:45 Results discussed with daughter and patient. Daughter requesting to take patient back to [place] and will stay with him. Nursing at facility to assess if needs further assistive devices and if at appropriate level of care Departure - Departure Time of Disposition: 03:18 Disposition: Home, Self-Care 01 Condition: Good Clinical Impression: Weakness generalized Toe laceration Qualifiers: Encounter type: initial encounter Toe: lesser toe Damage to nail status: without damage Foreign body presence: without foreign body Laterality: right Qualified Code(s): S91.114A - Laceration without foreign body of right lesser toe(s) without damage to nail, initial encounter Fall Qualifiers: Encounter type: initial encounter Qualified Code(s): W19.XXXA - Unspecified fall, initial encounter Contusion, hip Qualifiers: Encounter type: initial encounter Laterality: right Qualified Code(s): S70.01XA - Contusion of right hip, initial encounter Contusion of rib on right side Qualifiers: Encounter type: initial encounter Qualified Code(s): S20.211A - Contusion of right front wall of thorax, initial encounter Skin tear of elbow without complication Qualifiers: Encounter type: initial encounter Laterality: left Qualified Code(s): S51.012A - Laceration without foreign body of left elbow, initial encounter - Discharge Information *PRESCRIPTION DRUG MONITORING PROGRAM REVIEWED*: No *COPY OF PRESCRIPTION DRUG MONITORING REPORT IN PATIENT CONNOR: No Instructions: Skin Tear Care, [id number], Contusion, [id number], Skin Tear Care, Laceration Care, Adult, [id number] Referrals: PCP,Unobtain [Ordering Only Provider] - Forms: ED Department Discharge Additional Instructions: transfer with assist sutures out right 5th toe x 3 in 10-14 days wound check friday with dressing change to left elbow tylenol 5oomg every 4 hours as needed for discomfort or per facility order BP check today by nursing assessment update for ability to transfer independently Sepsis Event Note - Evaluation Sepsis Screening Result: No Definite Risk - Focused Exam Date Exam was Performed: 06/06/19 Time Exam was Performed: 09:37
[2019-06-02 00:55] LABS: ANION GAP 11.7
[2019-06-02] MEDS ORDERED: Lidocaine 1% 30 ML SDV INJECT ONE (02:33)
[2019-06-02] MEDS ORDERED: Bacitracin Oint 1 GM U/D Packet TOP ONE (02:33)
== END 2019-06-02 03:28 | disposition home or self-care (01) ==
LOC: DL.ED 00:04
DX: S91.114A Laceration without foreign body of right lesser toe(s) without damage to nail, initial encounter (principal); S51.012A Laceration without foreign body of left elbow, initial encounter; S70.01XA Contusion of right hip, initial encounter; S20.211A Contusion of right front wall of thorax, initial encounter; R53.1 Weakness; I25.10 Atherosclerotic heart disease of native coronary artery without angina pectoris; E78.00 Pure hypercholesterolemia, unspecified; I11.0 Hypertensive heart disease with heart failure; I50.9 Heart failure, unspecified; K21.9 Gastro-esophageal reflux disease without esophagitis; M19.90 Unspecified osteoarthritis, unspecified site; E03.9 Hypothyroidism, unspecified; Z90.49 Acquired absence of other specified parts of digestive tract; Z79.82 Long term (current) use of aspirin; Z88.8 Allergy status to other drugs, medicaments and biological substances; Z79.899 Other long term (current) drug therapy; Z88.1 Allergy status to other antibiotic agents; W19.XXXA Unspecified fall, initial encounter; Y92.002 Bathroom of unspecified non-institutional (private) residence as the place of occurrence of the external cause
CPT/HCPCS: 12001; 36415; 70450; 71250; 72125; 73070; 73560; 73590; 73620; 74176; 80053; 82550; 82553; 84484; 85025; 93005; 99284; J2001